=== PATIENT | female | born 1935 | race Caucasian/White ===

== ENCOUNTER → 2017-08-28 | Day surgery (SDC) | payer MEDICARE ==
[~2017-08-28] MED LIST: ALEN70 PO; AMBI5TAB PO; ASPI81 PO; GABA300 PO; HYDR-2768 PO; LACTATED RINGER'S 1000 ML INJ 1,000 ML ONE; LEVO.075 PO; LISI40TA PO; OMEP20CA5 PO; PROPOFOL 200 MG/20 ML AMP IV ONE; TAB-TAB PO; TYLE650T4 PO; ZOCO40TA PO
--- NOTE | 2017-08-28 11:21 | GIPROC ---
[facility] [address], [address] EGD PROCEDURE REPORT EXAM DATE: 08/28/2017 PATIENT NAME: Michael Sorenson MR #: [id number] BIRTHDATE: 1935 ATTENDING: Carl Severino MD ORDER #: [id number] BUSINESS PROCESS ENGINEER: Mariposa Ervin RN STATUS: outpatient INDICATIONS: The patient is a 82 yr old female here for an EGD due to history of esophageal reflux PROCEDURE PERFORMED: EGD w/ biopsy MEDICATIONS: None, Per Anesthesia, None, and Per Anesthesia. TOPICAL ANESTHETIC: CONSENT: The patient understands the risks and benefits of the procedure and understands that these risks include, but are not limited to: sedation, allergic reaction, infection, perforation and/or bleeding. Alternative means of evaluation and treatment include, among others: physical exam, x-rays, and/or surgical intervention. The patient elects to proceed with this endoscopic procedure. medical equipment was checked for proper function. Hand hygiene and appropriate measures for infection prevention was taken. After the risks, benefits and alternatives of the procedure were thoroughly explained, Informed consent was verified, confirmed and timeout was successfully executed by the treatment team. The patient was anesthetized with topical anesthesia and the EC-[id number] ([id number]) endoscope was introduced through the mouth and advanced to the second portion of the duodenum. Retroflexed views revealed no abnormalities The gastroscope was then slowly withdrawn and removed. ESOPHAGUS: A diffuse patch of atrophic abnormal mucosa was found in the lower third of the esophagus. The mucosa was atrophic. Multiple biopsies were performed. The endoscopy was otherwise normal. STOMACH: A small hiatal hernia was noted. ADVERSE EVENTS: There were no complications. IMPRESSIONS: 1. Diffuse abnormal mucosa was found in the lower third of the esophagus; The mucosa was atrophic; multiple biopsies were performed 2. Normal endoscopy otherwise 3. Small hiatal hernia 4. Retroflexed views revealed no abnormalities RECOMMENDATIONS: 1. Await biopsy results. Biopsy results will not be ready for 7-10 days. If you don't hear from us in two weeks, call our office for biopsy results. 2. Continue PPI 3. Follow-up: GI clinic 3 week(s) PATIENT CONDITION: stable DISPOSITION: Home REPEAT EXAM: Carl Severino MD eSigned: Carl Severino MD 08/28/2017 11:21 AM cc: Isaias Castillo M.D.
== END | disposition home or self-care (01) ==
LOC: ESDC 09:54
PROVIDERS: ATTEND Internal Medicine Gastroenterology
DX: K21.9 Gastro-esophageal reflux disease without esophagitis (principal); K44.9 Diaphragmatic hernia without obstruction or gangrene
CPT/HCPCS: 00731; 43239; 88305; J7120